=== PATIENT | male | born 1945 | race Caucasian/White ===

== ENCOUNTER 2016-10-28 11:53 | Emergency (ER) | payer MEDICARE ==
[~2016-10-28] VITALS: Ht 179.1 cm; Wt 84.0 kg
[~2016-10-28 11:53] MED LIST: CELE100C PO; CYCL-36 PO; EZET10 PO; PERC5TAB12 PO; ULTR50TA PO; XALA0.00 EACH EYE
[2016-10-28 11:54] VITALS: BP 150/75; PULSE 60; RESP 20; TEMP 97.8; O2SAT 97
[2016-10-28] MEDS ORDERED: CELE100C PO (12:09)
--- NOTE | 2016-10-28 12:12 | PD ---
HPI . Abdominal pain for 4-5 days Chief Complaint: Abdominal Pain Time Seen by Provider: 12:04 Travel History International Travel<30 days: No Contact w/Intl Traveler<30days: No Traveled to known affect area: No History of Present Illness HPI 71-year-old male with history of diverticular disease, hyperlipidemia, glaucoma , history of basal cell carcinoma, lumbar degenerative disease and chronic back pain with 2 spinal fusions here with complaints of abdominal pain for the past 4 -5 days. Patient says that he has recurrent issues of diverticulitis and have antibiotics at home for flares. He recently started antibiotics 3 days ago ( cipro and flagyl). He recently saw his stamping press operator Dr. Rogers in [place] and had some type of rectal scope done. Apparently he continue having abdominal pain and was recommended to come to the emergency department for further evaluation. His stamping press operator is requesting a CT scan of the abdomen and pelvis with IV and rectal contrast. He would like to rule out an abscess. Patient denies any fever or chills. He does not have any abnormalities with his bowel movements. He has been eating a bland diet and tolerating that well. He reports having intermittent nausea, which there is none present at this moment and he also denies any abdominal pain. He reports crampy intermittent abdominal pain rated as 7/10 when the bouts are present. He denies any hematochezia or melena. He also reports increased urinary frequency due to the pressure in his abdomen. He last had breakfast at 6:30 AM and had toast and a banana. He is accompanied by his . PFSH Past Medical History Arthritis: Yes Anxiety: No Cancer: Yes (BASIL CELL FACIAL SKIN CANCER) Cardiovascular Problems: No High Cholesterol: Yes (BORDERLINE, TAKES MEDICATION) Diabetes: No Endocrine: No Genitourinary: No Hepatitis: No Hiatal Hernia: No Immune Disorder: No Musculoskeletal: Yes (LEFT TORN ROTATOR CUFF-VERY PAINFUL) Neurologic: Yes (BACK PAIN) Psychiatric: No Reproductive: No Respiratory: No Immunizations Current: Yes Thyroid Disease: No Past Surgical History Abdominal Surgery: No AICD: No Body Medical Devices: LUMBAR CAGES Cardiac Surgery: No Ear Surgery: No Eye Surgery: No Genitourinary Surgery: No Gynecologic Surgery: No Joint Replacement: Yes (BILAT KNEES) Neurologic Surgery: Yes (LUMBAR FUSION) Oral Surgery: No Pacemaker: No Thoracic Surgery: No Social History Alcohol Use: Yes (2 BEERS A DAY) Tobacco Use: No Substance Use: No Allergies-Medications (Allergen,Severity, Reaction): Coded Allergies: Tetanus Immune Globulin (Verified Allergy, Severe, 10/28/16) Reported Meds & Prescriptions Reported Meds & Active Scripts Active Reported Celebrex (Celecoxib) 100 Mg Cap 100 Mg PO BID Review of Systems General / Constitutional: No: Fever Eyes: No: Visual changes HENT: No: Headaches Cardiovascular: No: Chest Pain or Discomfort Respiratory: No: Shortness of Breath Gastrointestinal: Positive: Nausea, Abdominal Pain, No: Vomiting, Diarrhea, Hematemesis, Hematochezia, Constipation Genitourinary: No: Dysuria Musculoskeletal: No: Pain Skin: No Rash Neurologic: No: Weakness Psychiatric: No: Depression Endocrine: No: Polydipsia Hematologic/Lymphatic: No: Easy Bruising Physical Exam Narrative GENERAL: AAO x 3, no acute distress, Well-nourished, well-developed patient. SKIN: Warm and dry. No visible rashes or bruising. HEAD: Normocephalic and atraumatic. EYES: No scleral icterus. No injection or drainage. EOM intact, PERRLA ENT: No nasal drainage noted. Mucous membranes pink. Airway patent. Moist mucous membranes NECK: Supple, trachea midline. No JVD. CARDIOVASCULAR: Regular rate and rhythm without murmurs, gallops, or rubs. RESPIRATORY: Breath sounds equal bilaterally. No accessory muscle use. No rhonchi or rales. GASTROINTESTINAL: Abdomen soft, tenderness in the lower right and left quadrants with slight guarding, no rebound. Normoactive bowel sounds throughout. EXTREMITIES: No cyanosis or edema. BACK: Nontender without obvious deformity. No CVA tenderness. NEURO: CN II-12 intact, sand conditioner machine strength normal b/l, UE and LE 5/5, no focal deficits PSYCH: AAO x 3, normal affect. Data Data Last Documented VS Vital Signs Date Time Temp Pulse Resp B/P Pulse Ox O2 Delivery O2 Flow Rate FiO2 10/28/16 12:40 99 10/28/16 11:54 97.8 60 20 150/75 Room Air Orders Complete Blood Count With Diff (10/28/16 12:12) Comprehensive Metabolic Panel (10/28/16 12:12) Lipase (10/28/16 12:12) Prothrombin Time / Inr (Pt) (10/28/16 12:12) Act Partial Throm Time (Ptt) (10/28/16 12:12) Iv Access Insert/Monitor (10/28/16 12:12) Ecg Monitoring (10/28/16 12:12) Oximetry (10/28/16 12:12) Sodium Chloride 0.9% Flush (Ns Flush) (10/28/16 12:15) Electrocardiogram (10/28/16 12:12) Ct Abd/Pel W Iv Contrast(Rout) (10/28/16 ) Fleets Enema (Adult) (Fleets Enema (Adul (10/28/16 12:15) Iohexol 350 Inj (Omnipaque 350 Inj) (10/28/16 14:11) Labs Laboratory Tests Test 10/28/16 12:00 White Blood Count 4.7 TH/MM3 Red Blood Count 5.02 MIL/MM3 Hemoglobin 14.8 GM/DL Hematocrit 44.9 % Mean Corpuscular Volume 89.5 FL Mean Corpuscular Hemoglobin 29.5 PG Mean Corpuscular Hemoglobin 32.9 % Concent Red Cell Distribution Width 13.6 % Platelet Count 194 TH/MM3 Mean Platelet Volume 8.5 FL Neutrophils (%) (Auto) 57.7 % Lymphocytes (%) (Auto) 27.7 % Monocytes (%) (Auto) 10.4 % Eosinophils (%) (Auto) 3.6 % Basophils (%) (Auto) 0.6 % Neutrophils # (Auto) 2.7 TH/MM3 Lymphocytes # (Auto) 1.3 TH/MM3 Monocytes # (Auto) 0.5 TH/MM3 Eosinophils # (Auto) 0.2 TH/MM3 Basophils # (Auto) 0.0 TH/MM3 CBC Comment DIFF FINAL Differential Comment Prothrombin Time 11.8 SEC Prothromb Time International 1.1 RATIO Ratio Activated Partial 29.8 SEC Thromboplast Time Sodium Level 137 MEQ/L Potassium Level 4.3 MEQ/L Chloride Level 104 MEQ/L Carbon Dioxide Level 25.3 MEQ/L Anion Gap 8 MEQ/L Blood Urea Nitrogen 14 MG/DL Creatinine 1.05 MG/DL Estimat Glomerular Filtration 69 ML/MIN Rate Random Glucose 101 MG/DL Calcium Level 9.0 MG/DL Total Bilirubin 0.6 MG/DL Aspartate Amino Transf 20 U/L (AST/SGOT) Alanine Aminotransferase 21 U/L (ALT/SGPT) Alkaline Phosphatase 74 U/L Total Protein 7.3 GM/DL Albumin 3.5 GM/DL Lipase 80 U/L MDM Medical Decision Making Medical Screen Exam Complete: Yes Emergency Medical Condition: Yes Medical Record Reviewed: Yes Differential Diagnosis Diverticulitis, abdominal abscess, constipation, Narrative Course 71-year-old male here with complaints of abdominal pain for the past 4-5 days. Patient is currently taking Cipro and Flagyl. He was seen by his stamping press operator who is recommending a CT scan of abdomen and pelvis with IV and rectal contrast. Labs and imaging have been ordered. I have discussed this with the patient. EKG reviewed by Dr. Kapoor. Labs reviewed and are fairly unremarkable. Laboratory Tests Test 10/28/16 12:00 White Blood Count 4.7 TH/MM3 Red Blood Count 5.02 MIL/MM3 Hemoglobin 14.8 GM/DL Hematocrit 44.9 % Mean Corpuscular Volume 89.5 FL Mean Corpuscular Hemoglobin 29.5 PG Mean Corpuscular Hemoglobin 32.9 % Concent Red Cell Distribution Width 13.6 % Platelet Count 194 TH/MM3 Mean Platelet Volume 8.5 FL Neutrophils (%) (Auto) 57.7 % Lymphocytes (%) (Auto) 27.7 % Monocytes (%) (Auto) 10.4 % Eosinophils (%) (Auto) 3.6 % Basophils (%) (Auto) 0.6 % Neutrophils # (Auto) 2.7 TH/MM3 Lymphocytes # (Auto) 1.3 TH/MM3 Monocytes # (Auto) 0.5 TH/MM3 Eosinophils # (Auto) 0.2 TH/MM3 Basophils # (Auto) 0.0 TH/MM3 CBC Comment DIFF FINAL Differential Comment Prothrombin Time 11.8 SEC Prothromb Time International 1.1 RATIO Ratio Activated Partial 29.8 SEC Thromboplast Time Sodium Level 137 MEQ/L Potassium Level 4.3 MEQ/L Chloride Level 104 MEQ/L Carbon Dioxide Level 25.3 MEQ/L Anion Gap 8 MEQ/L Blood Urea Nitrogen 14 MG/DL Creatinine 1.05 MG/DL Estimat Glomerular Filtration 69 ML/MIN Rate Random Glucose 101 MG/DL Calcium Level 9.0 MG/DL Total Bilirubin 0.6 MG/DL Aspartate Amino Transf 20 U/L (AST/SGOT) Alanine Aminotransferase 21 U/L (ALT/SGPT) Alkaline Phosphatase 74 U/L Total Protein 7.3 GM/DL Albumin 3.5 GM/DL Lipase 80 U/L Last Impressions Abdomen/Pelvis CT 10/28/16 0000 Signed Impressions: Service Date/Time: October 13:58 - CONCLUSION: 1. There is a 4 cm length segment of midsigmoid colon that demonstrates asymmetric wall thickening and pericolonic inflammatory change most likely representing a colitis or diverticulitis. No abscess, free air, or free fluid is present. Suggest followup to confirm resolution. 2. Nonacute findings include small hiatal hernia, mild atherosclerotic disease, and prostatomegaly. Valdemar Ny MD I personally reviewed results with Dr. Rogers here in the ED. He agrees that patient can be discharged home with outpatient f/u. I have discussed results with patient and his . I recommend continuation of abx and f/u with Dr. Rogers. Patient verbalized understanding of instructions, questions were answered, and thanked me for their care. I advised them if their condition worsens, please return to the nearest emergency room for further care. Diagnosis Primary Impression: Diverticulitis Qualified Code: K57.92 - Diverticulitis of intestine without bleeding, unspecified complication status, unspecified part of intestinal tract Patient Instructions: General Instructions Additional Instructions: Continue your home medications. Follow-up with your stamping press operator. Return to the emergency department for any worsening of your condition. Med/Other Pt SpecificInfo: No Change to Meds Disposition: 01 DISCHARGE HOME Condition: Stable Neena Morrison Oct 28, 2016 12:12
[2016-10-28] MEDS ORDERED: SODIUM CHLORIDE 0.9% FLUSH 10 ML FLUSH IV FLUSH PRN (12:15)
[2016-10-28] MEDS ORDERED: SOD PHOSPHATE/SOD BIPHOSPHATE (ADULT) ENEMA 133ML RECTAL ONE (12:15)
[2016-10-28 12:40] VITALS: O2SAT 99
[2016-10-28 12:56] LABS: APTT (PATIENT) 29.8 SEC (24.3-30.1); INTERNATIONAL NORMALIZED RATIO 1.1 RATIO; PROTHROMBIN TIME - PATIENT 11.8 SEC (9.8-11.6)
[2016-10-28 12:57] LABS: AUTOMATED NEUTROPHIL # 2.7 TH/MM3 (1.8-7.7); BASOPHIL % 0.6 % (0.0-2.0); EOSINOPHIL # 0.2 TH/MM3 (0-0.4); EOSINOPHIL % 3.6 % (0.0-4.0); HEMATOCRIT 44.9 % (39.0-51.0); HEMO FLAGS DIFF FINAL; LYMPH % 27.7 % (9.0-44.0); LYMPHOCYTE # 1.3 TH/MM3 (1.0-4.8); MEAN CELL VOLUME 89.5 FL (80.0-100.0); MEAN CORPUSCULAR HEMOGLOBIN 29.5 PG (27.0-34.0); MEAN CORPUSCULAR HGB CONC 32.9 % (32.0-36.0); MONO % 10.4 % (0.0-8.0); NEUT % 57.7 % (16.0-70.0); PLATELET COUNT 194 TH/MM3 (150-450); RED BLOOD COUNT 5.02 MIL/MM3 (4.50-5.90); RED CELL DISTRIBUTION WIDTH 13.6 % (11.6-17.2); WHITE BLOOD COUNT 4.7 TH/MM3 (4.0-11.0)
[2016-10-28 13:01] LABS: ANION GAP 8 MEQ/L (5-15); AST (GOT) 20 U/L (15-37); BICARBONATE 25.3 MEQ/L (21.0-32.0); BLOOD UREA NITROGEN 14 MG/DL (7-18); CHLORIDE 104 MEQ/L (98-107); GLOMERULAR FILTRATION RATE 69 ML/MIN (>89); POTASSIUM 4.3 MEQ/L (3.5-5.1); SODIUM (NA) 137 MEQ/L (136-145)
[2016-10-28 13:02] LABS: ALT (GPT) 21 U/L (12-78)
[2016-10-28 13:05] LABS: ALKALINE PHOSPHATASE 74 U/L (45-117); TOTAL BILIRUBIN ADULT 0.6 MG/DL (0.2-1.0)
[2016-10-28] MEDS ORDERED: IOHEXOL 350 MG/ML 10 ML VIAL (for RAD DIAG) IV ONE (14:11)
--- NOTE | 2016-10-28 14:30 | RADRPT ---
EXAM DATE/TIME: 10/28/2016 13:58 [facility] COMPARISON: No previous studies available for comparison. INDICATIONS : Lower diffuse abdomen for one day with nausea. IV CONTRAST: 90 cc Omnipaque 350 (iohexol) IV ORAL CONTRAST: No oral contrast ingested. RADIATION DOSE: 13.90 CTDIvol (mGy) MEDICAL HISTORY : Diverticulosis. Skin cancer SURGICAL HISTORY : Fusion, lumbar. ENCOUNTER: Initial ACUITY: 1 day PAIN SCALE: 8/10 LOCATION: Bilateral lower quadrant TECHNIQUE: Volumetric scanning of the abdomen and pelvis was performed. Using automated exposure control and ad justment of the mA and/or kV according to patient size, radiation dose was kept as low as reasonably achievable to obtain optimal diagnostic quality images. DICOM format image data is available electro nically for review and comparison. FINDINGS: LOWER LUNGS: The visualized lower lungs are clear. LIVER: Homogeneous density without lesion. There is no dilation of the biliary tree. No calcified gallston es. SPLEEN: Normal size without lesion. PANCREAS: Within normal limits. KIDNEYS: Normal in size and shape. There is no mass, stone or hydronephrosis. ADRENAL GLANDS: Within normal limits. VASCULAR: There is no aortic aneurysm. There is mild atherosclerotic disease. BOWEL/MESENTERY: The stomach and small bowel demonstrate no acute finding. There is sigmoid diverticulosis. A 4 cm denny gth segment of midsigmoid colon demonstrates concentric wall thickening with pericolonic inflammation . No abscess, free air, or free fluid is present. There is no free intraperitoneal air or fluid. The re is a small hiatal hernia. ABDOMINAL WALL: Within normal limits. RETROPERITONEUM: There is no lymphadenopathy. BLADDER: No wall thickening or mass. REPRODUCTIVE: Prostate gland is enlarged. INGUINAL: There is no lymphadenopathy or hernia. MUSCULOSKELETAL: There are degenerative changes throughout the lumbar spine. Patient is post left pedicular screw plac ement at L4-L5 with bone cages at L5-S1. Laminectomy has also been performed at L5-S1. CONCLUSION: 1. There is a 4 cm length segment of midsigmoid colon that demonstrates asymmetric wall thickening an d pericolonic inflammatory change most likely representing a colitis or diverticulitis. No abscess, f ree air, or free fluid is present. Suggest followup to confirm resolution. 2. Nonacute findings include small hiatal hernia, mild atherosclerotic disease, and prostatomegaly. Valdemar Ny MD on October 28, 2016 at 14:22 Board Certified Radiologist. This report was verified electronically.
[2016-10-28 16:03] VITALS: BP 130/78; TEMP 97.8
--- NOTE | 2016-10-29 13:45 | EKG ---
Date Performed: 10/28/2016 Time Performed: 12:32:25 PTAGE: 71 years EKG: SINUS BRADYCARDIA WITH SINUS ARRHYTHMIA BORDERLINE ECG Compared to prior tracing no signifi cant change PREVIOUS TRACING : 02/12/2010 06.44 DOCTOR: Jersey Lott Interpretating Date/Time 10/29/2016 13:43:25
== END 2016-10-28 16:03 | disposition home or self-care (01) ==
LOC: NEPE 11:53
DX: K57.92 Diverticulitis of intestine, part unspecified, without perforation or abscess without bleeding (principal); I70.90 Unspecified atherosclerosis; N40.0 Benign prostatic hyperplasia without lower urinary tract symptoms; K44.9 Diaphragmatic hernia without obstruction or gangrene; E78.5 Hyperlipidemia, unspecified
CPT/HCPCS: 74177; 80053; 83690; 85025; 85610; 85730; 93005; 99285; Q9967